=== PATIENT | male | born 1960 | race Caucasian/White ===

== ENCOUNTER → 2016-12-29 12:03 | Outpatient (CLI) | payer OTHER ==
[2015-03-11 14:41] VITALS: BMI 30.4
[~2016-12-29 12:03] MED LIST: APAP325 MG PO; ATACAND16 MG PO; ATACAND32 MG PO; BUPRENORPHIN-N1 EACH SL; CATAPRES0.1 MG PO; CIPRO500 MG PO; COZAAR100 MG PO; DOXYCYCLINE HY100 M2 PO; GLUCOPHAGE1000 MG PO; GLUCOTROL 5 MG T5 MG PO; HYDROCODONE-APA1 TAB; HYDROCODONE-APA1 TAB PO; LYRICA75 MG PO; MS CONTIN30 MG PO; NEURONTIN 300300 MG PO; PERCOCET 10/3251 TA1 PO; ROCEPHIN 2 GM/D52 G1 IV; UNASYN IV; VANCOMYCIN 1 GM/1 G1 IV
[2016-12-29 16:45] LABS: CREATININE - SERUM 1.3 mg/dL (0.6-1.3); VANCOMYCIN - TROUGH 14.5 ug/mL (10.0-20.0)
== END | disposition home or self-care (01) ==
LOC: D.LABREF 12:03
DX: M86.9 Osteomyelitis, unspecified (principal); Z79.2 Long term (current) use of antibiotics; S81.802A Unspecified open wound, left lower leg, initial encounter

== ENCOUNTER → 2017-01-02 12:30 | Outpatient (CLI) | payer OTHER ==
[2015-03-11 14:41] VITALS: BMI 30.4
[2017-01-02 13:26] LABS: CREATININE - SERUM 0.8 mg/dL (0.6-1.3); VANCOMYCIN - TROUGH 9.1 ug/mL (10.0-20.0)
== END | disposition home or self-care (01) ==
LOC: D.LABREF 12:30
DX: Z51.81 Encounter for therapeutic drug level monitoring (principal); Z79.2 Long term (current) use of antibiotics

== ENCOUNTER → 2017-01-09 12:58 | Outpatient (CLI) | payer OTHER ==
[2015-03-11 14:41] VITALS: BMI 30.4
[2017-01-09 13:54] LABS: CREATININE - SERUM 0.8 mg/dL (0.6-1.3)
== END | disposition home or self-care (01) ==
LOC: D.LABREF 12:58
DX: Z51.81 Encounter for therapeutic drug level monitoring (principal); Z79.2 Long term (current) use of antibiotics

== ENCOUNTER → 2017-01-12 16:15 | Outpatient (CLI) | payer OTHER ==
[2015-03-11 14:41] VITALS: BMI 30.4
== END | disposition home or self-care (01) ==
LOC: D.LABREF 16:15
PROVIDERS: Internal Medicine Infectious Disease
DX: M86.60 Other chronic osteomyelitis, unspecified site (principal); Z79.2 Long term (current) use of antibiotics

== ENCOUNTER → 2017-01-12 18:27 | Outpatient (CLI) | payer OTHER ==
[2015-03-11 14:41] VITALS: BMI 30.4
== END | disposition home or self-care (01) ==
LOC: D.LABREF 18:27
DX: S81.802A Unspecified open wound, left lower leg, initial encounter (principal); M86.60 Other chronic osteomyelitis, unspecified site; Z79.2 Long term (current) use of antibiotics

== ENCOUNTER 2018-07-05 10:20 | Inpatient (IN) | payer OTHER, MEDICARE ==
[~2018-07-05] VITALS: Ht 180.3 cm; Wt 99.8 kg
--- NOTE | ~2018-07-05 | EC ---
PATIENT:KARI CORONADO DATE OF SERVICE: 07/05/18 SEX: M MEDICAL RECORD: [id number] DATE OF : 58 LOCATION:D.MS [facility]222 AGE OF PATIENT: 57 ADMISSION DATE: 07/05/18 REFERRING PHYSICIAN: INTERPRETING PHYSICIAN: CE GRIJALVA MD ECHOCARDIOGRAM REPORT ECHO CHARGES 4 ECHO COMPLETE Date: 07/06/18 CLINICAL DIAGNOSIS: DVT ECHOCARDIOGRAPHIC MEASUREMENTS (adult normal given) AC root (d.<3.7cm) 4.5 cm LV Septum d (<1.2 cm> 1.6 cm Valve Excursion 1.8 cm LV Septum (systole) 2.0 cm Left Atria (s.<4.0cm> 3.4 cm LVPW d(<1.2cm) 1.8 cm RV (d.<2.3cm) 3.1 cm LVPW (sytole) 1.9 cm LV diastole(<5.6CM) 4.0 cm MV E-F(>70mm/sec) cm LV systole 3.2 cm LVOT Diameter 2.0 cm MV exc.(>10mm) cm Est.ejection fraction (50-75%) % DOPPLER: LVIT cm/sec A 103 cm/sec E 72.0 cm/sec LA cm/sec RVSP 15 mmHg LVOT 85 cm/sec AOP1/2T m/s Asc. Ao 121 cm/sec RVOT 58 cm/sec RA cm/sec PA 98 cm/sec AV Gradient Peak 5.90 mmHg AV Mean 2.97 mmHg AV Area 2.2 cm MV Gradient Peak 4.52 mmHg MV Mean 1.65 mmHg MV Area cm COMMENTS: Measurement Department Chief Clerk: 2 PINO ELLSWORTH Reel Worker: 1 Dr. Russell TAPE# PACS Pericardial Effusion N DATE OF SERVICE: Adequate 2D echo, color flow, spectral Doppler, and M-mode. LVH present. LV internal dimension is normal. Wall motion normal. EF is greater than or equal to 55%. Aortic valve is tricuspid. No evidence of stenosis by Doppler interrogation. Left atrium is normal at 3.4 cm. Mitral valve showed no prolapse. Trace MR. Right-sided chambers grossly normal. Trace TR. ECHOCARDIOGRAM REPORT [id number] KARI CORONADO TRANSINT:[id number] Voice Confirmation ID: [id number] DOCUMENT ID: [id number] CE GRIJALVA MD at 1546 CC: [id number] DICTATION DATE: 07/07/1842 FREELANCE TRANSLATOR: 07/07/18 1641 DIS IN 07/09/18 [facility] [address] [place] [address]
--- NOTE | ~2018-07-05 | MORECARE ---
CASE MANAGEMENT DISCHARGE SUMMARY PATIENT: KARI CORONADO UNIT: [id number] ADM DATE: 07/05/18 AGE: 57 : 58 SEX: M ROOM/BED: D.E10 AUTHOR: KIKI VAZQUEZ PHYSICIAN: REFERRING PHYSICIAN: MARI ALSTON MD DATE OF SERVICE: 07/05/18 Discharge Plan Patient Name: KARI CORONADO [facility] : 1960 Planned Disposition: Anticipated Discharge Date: Discharge Date: Expected LOS: Initial Reviewer: [email or web address] Initial Review Date: 07/05/2018 Generated: 07/05/18 2:04 pm DCPIA - Discharge Planning Initial Assessment Updated by [email or web address]: Elysia Minaya on 07/05/18 1:03 pm * Is the patient Alert and Oriented? Yes * PCP NONE * Pharmacy [facility] * Preadmission Environment Home with Family * ADLs Partial Dependent * Partial ADLs (Assistance needed) Ambulation * Equipment Crutch * List name and contact numbers for known caregivers / representatives who currently or will assist patient after discharge: SCOTT, DAUGHTER, * Community resources currently utilized None * Can the patient safely return to the preadmission environment? Yes * Has this patient been hospitalized within the prior 30 days at any hospital? No Patient Name: KARI CORONADO Page 69608 at 1304 All edits/amendments must be made on the electronic document DICTATION DATE: 07/05/18 1304 CAR JOCKEY: CECIL 07/05/18 1304 RPT#: [id number] DC DATE: STATUS: ADM IN [facility] [address] [place] [address] END OF REPORT
--- NOTE | ~2018-07-05 | HEMODYNAMI ---
PATIENT:KARI CORONADO MEDICAL RECORD: [id number] : 58 LOCATION:[facility] D.2227 ADMISSION DATE: 07/05/18 Generatedon:07/06/201811:02 Patient name: KARI CORONADO Patient #: [id number] SSN: : 1960 Date of study: 07/06/2018 Page: Of Hemodynamic Procedure Report Patient Data Patient Demographics Procedure consent was obtained First Name: KARI Gender: Male Last Name: IVONNE : 1960 Patient #: [id number] Age: 57 year(s) Race: Unknown Additional ID: [id number] Contact details [address]: [address] [place] [address] State: [place] City: [place] Zip code: [address] Past Medical History Allergies: No known allergies Admission Admission Data Admission Date: 07/05/2018 Admission Time: 12:59 Room #: D.2227 Height (in.): 71 BSA: 2.2 (m2) Height (cm.): 180.34 BMI: 30.68 (kg/m2) Weight (lbs.): 220 Weight (kg.): 99.79 Procedure Procedure Types Cath Procedure Peripheral Cath Diagnostic Procedure Venography Procedure Description Procedure Date Procedure Date: 07/06/2018 Procedure Start Time: 9:55 Procedure Staff Name Function Michoacano Vega MD Performing Physician Nadeen Landaverde RT Monitor Mitch Oliver RT Scrub Dipika Hull RN Nurse Procedure Data Cath Procedure Fluoroscopy Diagnostic fluoroscopy Total fluoroscopy Time: 6.9 time: 6.9 min min Diagnostic fluoroscopy Total fluoroscopy dose: dose: 1559 mGy 1559 mGy Contrast Material Contrast Material Type Amount (ml) Isovue 300 110 Procedure Medications Medication Administration Route Dosage Heparin Flush Bag added to field 3 bags (1000units/500ml NS) Lidocaine 1% added to field 20 Versed I.V. 2 mg Fentanyl I.V. 100 mcg Versed I.V. 1 mg Fentanyl I.V. 50 mcg Versed I.V. 1 mg Fentanyl I.V. 50 mcg Heparin Bolus I.V. 5000 units Benadryl I.V. 50 mg Versed I.V. 1 mg Fentanyl I.V. 50 mcg Hemodynamics Rest BSA: 2.2 (m2) O2 Consumption: Estimated: 277.14 (ml/min) O2 Consumption indexed: Estimated:125.97 (ml/min/m) Heart Rate: 91 (bpm) Snapshots Pre Cath Intra NCS Post Cath Vital Signs Time Heart Resp SPO2 etCO2 NIBP (mmHg) Rhythm Pain Sedation Rate (ipm) (%) (mmHg) Status Level (bpm) 9:43:36 89 12 99 30.6 182/125(148) NSR 0 (11) 10(A) , No pain 9:47:54 91 20 95 20.2 156/105(116) NSR 0 (11) 10(A) , No pain 9:52:14 92 13 98 20.9 153/103(137) NSR 0 (11) 10(A) , No pain 9:56:42 93 13 26.9 160/91(111) NSR 0 (11) 8(A) , No pain 10:01:00 90 15 97 40.4 147/87(124) NSR 0 (11) 8(A) , No pain 10:05:25 91 22 97 47.8 133/85(124) NSR 0 (11) 8(A) , No pain 10:09:38 87 19 95 29.2 119/87(99) NSR 0 (11) 8(A) , No pain 10:14:38 86 15 95 38.1 Measuring NSR 0 (11) 8(A) , No pain 10:14:48 87 17 94 40.4 144/96(127) NSR 0 (11) 8(A) , No pain 10:19:08 83 17 90 33.7 159/108(128) NSR 0 (11) 8(A) , No pain 10:23:34 85 17 95 38.9 144/100(123) NSR 0 (11) 8(A) , No pain 10:27:56 87 19 32.1 142/100(113) NSR 0 (11) 8(A) , No pain 10:32:43 86 19 94 0.7 154/95(125) NSR 0 (11) 8(A) , No pain 10:37:01 85 18 98 17.9 147/103(118) NSR 0 (11) 8(A) , No pain 10:41:28 84 10 0 144/105(117) NSR 0 (11) 8(A) , No pain 10:45:48 86 19 98 3.7 148/100(117) NSR 0 (11) 8(A) , No pain 10:50:47 86 23 85 1.4 Measuring NSR 0 (11) 8(A) , No pain 10:50:49 86 20 84 0.7 140/101(133) NSR 0 (11) 8(A) , No pain 10:55:48 86 14 96 13.4 Measuring NSR 0 (11) 8(A) , No pain 10:56:10 87 18 89 19.4 145/108(132) NSR 0 (11) 8(A) , No pain 11:00:28 87 16 0.7 154/118(142) NSR 0 (11) 8(A) , No pain Medications Time Medication Route Dose Verified Delivered Reason Notes Effec tiveness by by 9:42:08 Heparin Flush added 3 Michoacano Ríos used for Bag to bags Silvia Vega procedure (1000units/500ml field MD GARCIA NS) 9:48:22 Lidocaine 1% added 20ml Michoacano Ríos used for to vial Silvia Vega procedure field MD GARCIA 9:56:14 Versed I.V. 2 mg Michoacano Bar for Silvia Hull RN sedation 9:56:24 Fentanyl I.V. 100 Michoacano Bar for mcg Silvia Hull RN sedation 10:00:08 Versed I.V. 1 mg Michoacano Crumody for Silvia Hull RN sedation 10:00:21 Fentanyl I.V. 50 Michoacano Bar for mcg Silvia Hull RN sedation 10:05:24 Versed I.V. 1 mg Michoacano Bar for Silvia Hull RN sedation 10:05:31 Fentanyl I.V. 50 Michoacano Crumody for mcg Silvia Mylesr RN sedation 10:30:04 Heparin Bolus I.V. 5000 Michoacano Crumody units Silvia Hull RN, MD 10:31:30 Benadryl I.V. 50 mg Michoacano Hull RN, MD 10:42:22 Versed I.V. 1 mg Michoacano Bar for Silvia Hull RN sedation 10:42:28 Fentanyl I.V. 50 Michoacano Bar for [facility] Silvia Hull RN sedation Procedure Log Time Note 9:17:12 Use device set IR Diagnostic 9:17:15 Tegaderm 4 x 4 (1626W) opened to sterile field. 9:17:15 Sterile Angiographic Pack opened to sterile field. 9:17:18 Bag Decanter (2002S) opened to sterile field. 9:17:39 Patient Weight : 220 lbs 9:17:44 Patient Height : 71 inches 9:21:58 Time tracking: Regular hours (M-F 7:00 - 5:00) 9:22:07 Plan of Care:Hemodynamics will remain stable., Cardiac rhythm will remain stable., Comfort level will be maintained., Respiratory function will remain adequate., Patient/ family verbilizes understanding of procedure., Procedure tolerated without complication., Recovers from procedure without complications.. 9:23:24 Patient received from Med/Surg to IR Alert and oriented. Tansferred to table in Prone position. 9:23:29 Correct patient and procedure confirmed by team. 9:23:31 Signed procedure consent form obtained from patient. 9:23:42 H&P Date Dictated: 07/06/2018 Within 30 days and on chart.. 9:24:33 Pre-procedure instructions explained to patient. 9:24:34 Pre-op teaching completed and patient verbalized understanding. 9:24:38 Family unavailable. 9:24:42 Patient NPO since Midnight. 9:24:55 Patient allergic to No known allergies 9:25:39 Is the patient allergic to Iodine/contrast media? No. 9:25:44 Is patient on blood thinner?Yes 9:25:56 ACC The patient was administered the following blood thiners within the last 24 hours: ACCLovenox 9:26:01 Patient diabetic? Yes. 9:26:20 If diabetic: On Metformin? Yes 9:26:31 If on Metformin: Last Dose? 07/05/2018 9:26:36 - 9::46 ----Pre-sedation anethsthesia assessment.---- 9::55 Previous problem with sedation/anesthesia? No ? 9:27:10 Snore? No 9:27:13 Sleep apnea? No 9:27:15 Deviated septum? No 9:27:18 Opens mouth fully? Yes 9:27:22 Sticks out tongue? Yes 9:27:25 Airway obstruction? No ? 9:27:37 Dentures? No ? 9:27:50 IV patent on arrival in right forearm with D5/.45%NaCl at O. 9:27:58 Popliteal region area was prepped with chlora-prep and draped in steril e fashion 9:28:02 - 9:29:07 BENTSON 145cm wire ([id number]) opened to sterile field. 9:29:08 Micropuncture VSI 4FR kit opened to sterile field. 9:29:[address] Ori ([id number]) opened to sterile field. 9:29:09 GLIDE CATHETER 5FR ANGLED 65cm (CG507) opened to sterile field. 9:40:53 ROADRUNNER FIRM 260CM glide wire ([id number]) opened to sterile field. 9:42:08 Heparin Flush Bag (1000units/500ml NS) 3 bags added to field was administered by Michoacano Vega MD; used for procedure; 9:42:12 Baseline sample Acquired. 9:42:12 Vital chart was started 9:48:22 Lidocaine 1% 20ml vial added to field was administered by Michoacano pina MD; used for procedure; 9:49:59 Physician arrived 9:50:00 --------ALL STOP TIME OUT------ 9:50:01 Final Timeout: patient, procedure, and site verified with staff and physician. All members of the team are in agreement. 9:51:07 PACK 260 wire ([id number]) opened to sterile field. 9:55:03 Procedure started. 9:55:04 Full Disclosure recording started 9:55:10 Local anesthetic to right popliteal vein with Lidocaine 1% by Michoacano Vega MD.INITIAL ACCESS ONLY 9:55:13 Venous access obtained using ultrasound guidance. 9:56:14 Versed 2 mg I.V. was administered by Dipika Hull RN; for sedation; 9:56:24 Fentanyl 100 mcg I.V. was administered by Dipika Hull RN; for sedation; 10:00:08 Versed 1 mg I.V. was administered by Dipika Hull RN; for sedation; 10:00:21 Fentanyl 50 mcg I.V. was administered by Dipika Hull RN; for sedation ; 10:01:10 Baseline sample Acquired. 10:01:16 - 10:03:03 Zelante 8Fr Angiojet catheter opened to sterile field. 10:05:24 Versed 1 mg I.V. was administered by Dipika Hull RN; for sedation; 10:05:31 Fentanyl 50 mcg I.V. was administered by Dipika Hull RN; for sedation ; 10:23:23 INFLATOR BasixTOUCH ([id number]) opened to sterile field. 10:24:09 Inflate balloon Inflation number: 1 A Evercross 10 x 40 x 135 Balloon ([id number]) was prepped and advanced across the Undefined1, then inflated . 10:30:04 Heparin Bolus 5000 units I.V. was administered by Dipika Hull RN; ; 10:31:30 Benadryl 50 mg I.V. was administered by Dipika Hull RN; ; 10:32:57 Inflate balloon Inflation number: 2 A Evercross 12 x 40 x 135 ([id number]) was prepped and advanced across the Undefined1, then inflated. 10:42:22 Versed 1 mg I.V. was administered by Dipika Hull RN; for sedation; 10:42:28 Fentanyl 50 mcg I.V. was administered by Dipika Hull RN; for sedation ; 10:46:54 WALL STENT 12X60 stent ([id number]) was deployed across Undefined1 . 10:51:48 Procedure ended.(Physican Out) 10:52:16 Fluoroscopy time 06.90 minutes. 10:52:21 Fluoroscopy dose: 1559 mGy 10:52:21 Flurop Dose total: 1559 10:52:34 Contrast amount:Isovue 300 110ml. 10:52:37 Procedure and supply charges have been captured, reviewed, submitted an d are correct. 10:56:47 Report given to Med/Surg. 11:02:37 Vital chart was stopped Intervention Summary Intervention Notes Time ActionType Lesion and Equipment Used Action# Pressure Duration Attributes 10:24:09 Inflate Undefined1 Evercross 10 x 1 0 00:00 balloon 40 x 135 Balloon ([id number]) 10:32:57 Inflate Undefined1 Evercross 12 x 2 0 00:00 balloon 40 x 135 ([id number]) 10:46:54 Deploy self Undefined1 WALL STENT 1 expanding 12X60 stent stent ([id number]) Device Usage Item Name Manufacture Quantity Catalog Number Hospital Part Current M inimal Lot# / Charge Number Stock Stock Serial# Code Tegaderm 4 x 4 3M 1 1626W [id number] [id number] [id number] 5 (1626W) Sterile Cardinal 1 [id number] 970021 092069 5 Angiographic Health Pack Bag Decanter Microtek 1 2001S 479404 78146 553937 5 () Medical Inc. BENTSON 145cm Cook Medical 1 [id number] 945049 432921 5 wire ([id number]) Micropuncture VSI VASCULAR 1 7266V 864695 837421 5 VSI 4FR kit SOLUTIONS SHEATH [address]FR [facility] St Ori 1 070536 616312 345411 721257 5 Ori (610656) GLIDE CATHETER Terumo 1 CG507 624683 827399 5 5FR ANGLED 65cm (CG507) ROADRUNNER FIRM Cook Medical 1 D11547 224334 212961 5 [id number] 260CM glide wire (M09273) PACK 260 wire Cook [facility] 1 Z79631 445443 82118 210205 5 [id number] ([id number]) Zelante 8Fr [place] 1 813611-823 413793 071521 525658 5 AngioMetis Secure Solutionst Scientific catheter INFLATOR Merit 1 IY1032 004038 010424 505579 5 BasixAtiva Medical Medical (IL6868) Evercross 10 x Medtronic 1 [id number] 476947 718110 047263 5 [id number] 40 x 135 Balloon ([id number]) Evercross 12 x Medtronic 1 [id number] 721228 276666 102365 5 [id number] 40 x 135 ([id number]) WALL STENT [place] 1 [id number] 974125 903456 054304 5 [id number] 12X60 stent Scientific ([id number]) Signature Audit [place] Stage Time Signature Unsigned Intra-Procedure 07/06/2018 Nadeen Landaverde 11:02:34 AM RT(R) Signatures Monitor : Nadeen Landaverde RT Signature : Date : Time : [place] [id number] [place] [address]
--- NOTE | ~2018-07-05 | MORECARE ---
CASE MANAGEMENT DISCHARGE SUMMARY PATIENT: KARI CORONADO UNIT: [id number] ADM DATE: 07/05/18 AGE: 57 : 58 SEX: M ROOM/BED: D.E10 AUTHOR: KIKI VAZQUEZ PHYSICIAN: REFERRING PHYSICIAN: MARI ALSTON MD DATE OF SERVICE: 07/05/18 Discharge Plan Patient Name: KARI CORONADO Facility: [facility]:[place] : 1960 Planned Disposition: Anticipated Discharge Date: Discharge Date: Expected LOS: Initial Reviewer: [email or web address] Initial Review Date: 07/05/2018 Generated: 07/05/18 2:12 pm DCP- Discharge Planning Updated by [email or web address]: Elysia Minaya on 07/05/18 12:[address] Patient Name: KARI CORONADO Admission Status: ER Accout number: [id number] Admission Date: 07-05-2018 : 1960 Admission Diagnosis: Attending: MARI ALSTON Current LOS: 1 Anticipated DC Date: Planned Disposition: Primary Insurance: WORKERS COMPENSATION Discharge Planning Comments: CM MET WITH PATIENT AND DAUGHTER ABOUT DC PLANNING/NEEDS. STATES PLANS TO DC TO HOME WHEN DISCHARGED. [facility] USES CRUTCHES WHEN NEEDED. NO NEEDS KNOWN AT THIS TIME. CM WILL FOLLOW AND ASSIST NEEDED WITH DC PLANNING/NEEDS. Farmworker [employer]: Elysia Minaya DCPIA - Discharge Planning Initial Assessment Updated by [email or web address]: Elysia Minaya on 07/05/18 1:03 pm * Is the patient Alert and Oriented? Yes * PCP NONE * Pharmacy [facility] * Preadmission Environment Home with Family * ADLs Partial Dependent * Partial ADLs (Assistance needed) Ambulation * Equipment Crutch * List name and contact numbers for known caregivers / representatives who currently or will assist patient after discharge: SCOTT, DAUGHTER, * Community resources currently utilized None * Can the patient safely return to the preadmission environment? Yes * Has this patient been hospitalized within the prior 30 days at any hospital? No Last DP export: 07/05/18 12:04 Patient Name: KARI CORONADO Page 70657 at 1312 All edits/amendments must be made on the electronic document DICTATION DATE: 07/05/181311 PONY EDGER: CECIL 07/05/181311 RPT#: [id number] [place] DATE: STATUS: ADM IN [facility] [address] [place] [address] END OF REPORT
--- NOTE | ~2018-07-05 | MORECARE ---
CASE MANAGEMENT DISCHARGE SUMMARY PATIENT: KARI CORONADO UNIT: [id number] ADM DATE: 07/05/18 AGE: 57 : 58 SEX: M ROOM/BED: D.2227 AUTHOR: TAYLOR,DOC PHYSICIAN: REFERRING PHYSICIAN: MARI ALSTON MD DATE OF SERVICE: 07/06/18 Discharge Plan Patient Name: KARI CORONADO Facility: [facility]:[place] : 1960 Planned Disposition: Anticipated Discharge Date: Discharge Date: Expected LOS: Initial Reviewer: [email or web address] Initial Review Date: 07/05/2018 Generated: 07/06/18 4:48 pm Comments DCP- Discharge Planning Updated by [email or web address]: Lawanda Zhu on 07/06/18 2:[address] Met with patient to discuss his insurance. He states this is related to his injury when he was 17 and it is Workman's comp related. He states he lives with his (Bella). States he is independent with all ADL's and IADL's. States his will take him home on discharge. Denies need for home health. CM will continue to follow and assist with discharge planning/needs. DCP- Discharge Planning Updated by [email or web address]: Elysia Minaya on 07/05/18 12:[address] Patient Name: KARI CORONADO Admission Status: ER Accout number: [id number] Admission Date: 07-05-2018 : 1960 Admission Diagnosis: Attending: MARI ALSTON Current LOS: 1 Anticipated DC Date: Planned Disposition: Primary Insurance: WORKERS COMPENSATION Discharge Planning Comments: CM MET WITH PATIENT AND DAUGHTER ABOUT DC PLANNING/NEEDS. STATES PLANS TO DC TO HOME WHEN DISCHARGED. STATES USES CRUTCHES WHEN NEEDED. NO NEEDS KNOWN AT THIS TIME. CM WILL FOLLOW AND ASSIST NEEDED WITH DC PLANNING/NEEDS. Outboard Motorboat Rigger: Elysia Minaya DCPIA - Discharge Planning Initial Assessment Updated by [email or web address]: Elysia Minaya on 07/05/18 1:03 pm * Is the patient Alert and Oriented? Yes * PCP NONE * Pharmacy [facility] * Preadmission Environment Home with Family * ADLs Partial Dependent * Partial ADLs (Assistance needed) Ambulation * Equipment Crutch * List name and contact numbers for known caregivers / representatives who currently or will assist patient after discharge: SCOTT, JOEY, * Community resources currently utilized None * Can the patient safely return to the preadmission environment? Yes * Has this patient been hospitalized within the prior 30 days at any hospital? No Last DP export: 07/05/18 12:12 Patient Name: KARI CORONADO Page 35133 at 1548 All edits/amendments must be made on the electronic document DICTATION DATE: 07/06/181546 SOAP TENDER: CECIL 07/06/181546 RPT#: [id number] DC DATE: STATUS: ADM IN [facility] [address] [place] [address] END OF REPORT
--- NOTE | ~2018-07-05 | MORECARE ---
CASE MANAGEMENT DISCHARGE SUMMARY PATIENT: KARI CORONADO UNIT: [id number] ADM DATE: 07/05/18 AGE: 57 : 58 SEX: M ROOM/BED: D.2227 AUTHOR: KIKI VAZQUEZ PHYSICIAN: REFERRING PHYSICIAN: MARI ALSTON MD DATE OF SERVICE: 07/09/18 Discharge Plan Patient Name: KARI CORONADO Facility: [facility]:[place] : 1960 Planned Disposition: Anticipated Discharge Date: Discharge Date: Expected LOS: Initial Reviewer: [email or web address] Initial Review Date: 07/05/2018 Generated: 07/09/18 5:52 pm Comments DCP- Discharge Planning Updated by [email or web address]: Lawanda Zhu on 07/09/18 3:[address] Patient Name: AKRI CORONADO Encounter No: [id number] : 1960 Primary Insurance: WORKERS COMPENSATION Anticipated DC Date: Planned Disposition: External Planned Provider: : DCP follow-up note: Patient in agreement with discharge plan. He denies need for home health. He states his will pick him up. Denies need for DME. No changes to plan. Case management will follow and assist as needed. Lawanda Zhu DCP- Discharge Planning Updated by [email or web address]: Lawanda Zhu on 07/06/18 2:[address] Met with patient to discuss his insurance. He states this is related to his injury when he was 17 and it is Workman's comp related. He states he lives with his (Bella). States he is independent with all ADL's and IADL's. States his will take him home on discharge. Denies need for home health. CM will continue to follow and assist with discharge planning/needs. DCP- Discharge Planning Updated by [email or web address]: Elysia Minaya on 07/05/18 12:[address] Patient Name: KARI CORONADO Admission Status: ER Accout number: [id number] Admission Date: 07-05-2018 : 1960 Admission Diagnosis: Attending: MARI ALSTON Current LOS: 1 Anticipated DC Date: Planned Disposition: Primary Insurance: WORKERS COMPENSATION Discharge Planning Comments: CM MET WITH PATIENT AND DAUGHTER ABOUT DC PLANNING/NEEDS. STATES PLANS TO DC TO HOME WHEN DISCHARGED. STATES USES CRUTCHES WHEN NEEDED. NO NEEDS KNOWN AT THIS TIME. CM WILL FOLLOW AND ASSIST NEEDED WITH DC PLANNING/NEEDS. Broadband Installer: Elysia Minaya DCPIA - Discharge Planning Initial Assessment Updated by [email or web address]: Elysia Minaya on 07/05/18 1:03 pm * Is the patient Alert and Oriented? Yes * PCP NONE * Pharmacy [facility] * Preadmission Environment Home with Family * ADLs Partial Dependent * Partial ADLs (Assistance needed) Ambulation * Equipment Crutch * List name and contact numbers for known caregivers / representatives who currently or will assist patient after discharge: SCOTT, DAUGHTER, * Community resources currently utilized None * Can the patient safely return to the preadmission environment? Yes * Has this patient been hospitalized within the prior 30 days at any hospital? No Last DP export: 07/06/18 2:48 Patient Name: KARI CORONADO Page 16592 at 1653 All edits/amendments must be made on the electronic document DICTATION DATE: 07/09/181651 SEMICONDUCTOR DEVELOPMENT TECHNICIAN: CECIL 07/09/181651 RPT#: [id number] DC DATE: STATUS: ADM IN [facility] [address] [place] [address] END OF REPORT
--- NOTE | ~2018-07-05 | MORECARE ---
CASE MANAGEMENT DISCHARGE SUMMARY PATIENT: KARI CORONADO UNIT: [id number] ADM DATE: 07/05/18 AGE: 57 : 58 SEX: M ROOM/BED: D.2227 AUTHOR: KIKI VAZQUEZ PHYSICIAN: REFERRING PHYSICIAN: MARI ALSTON MD DATE OF SERVICE: 07/10/18 Discharge Plan Patient Name: KARI CORONADO Facility: [facility]:[place] : 1960 Planned Disposition: Home Anticipated Discharge Date: Discharge Date: 07/09/2018 Expected LOS: 0 Initial Reviewer: [email or web address] Initial Review Date: 07/05/2018 Generated: 07/10/18 10:01 am Comments DCP- Discharge Planning Updated by [email or web address]: Lawanda Zhu on 07/09/18 3:[address] Patient Name: KARI CORONADO Encounter No: [id number] : 1960 Primary Insurance: WORKERS COMPENSATION Anticipated DC Date: Planned Disposition: External Planned Provider: : DCP follow-up note: Patient in agreement with discharge plan. He denies need for home health. He states his will pick him up. Denies need for DME. No changes to plan. Case management will follow and assist as needed. Lawanda Zhu DCP- Discharge Planning Updated by [email or web address]: Lawanda Zuh on 07/06/18 2:[address] Met with patient to discuss his insurance. He states this is related to his injury when he was 17 and it is Workman's comp related. He states he lives with his (Bella). States he is independent with all ADL's and IADL's. States his will take him home on discharge. Denies need for home health. CM will continue to follow and assist with discharge planning/needs. DCP- Discharge Planning Updated by [email or web address]: Elysia Minaya on 07/05/18 12:[address] Patient Name: KARI CORONADO Admission Status: ER Accout number: [id number] Admission Date: 07-05-2018 : 1960 Admission Diagnosis: Attending: MARI ALSTON Current LOS: 1 Anticipated DC Date: Planned Disposition: Primary Insurance: WORKERS COMPENSATION Discharge Planning Comments: CM MET WITH PATIENT AND DAUGHTER ABOUT DC PLANNING/NEEDS. STATES PLANS TO DC TO HOME WHEN DISCHARGED. STATES USES CRUTCHES WHEN NEEDED. NO NEEDS KNOWN AT THIS TIME. CM WILL FOLLOW AND ASSIST NEEDED WITH DC PLANNING/NEEDS. Roller Pneumatic: Elysia Marimar DCPIA - Discharge Planning Initial Assessment Updated by [email or web address]: Elysiapaul Minaya on 07/05/18 1:03 pm * Is the patient Alert and Oriented? Yes * PCP NONE * Pharmacy [facility] * Preadmission Environment Home with Family * ADLs Partial Dependent * Partial ADLs (Assistance needed) Ambulation * Equipment Crutch * List name and contact numbers for known caregivers / representatives who currently or will assist patient after discharge: SCOTT, DAUGHTER, * Community resources currently utilized None * Can the patient safely return to the preadmission environment? Yes * Has this patient been hospitalized within the prior 30 days at any hospital? No Last DP export: 07/09/18 3:52 Patient Name: KARI CORONADO Page 33624 at 0901 All edits/amendments must be made on the electronic document DICTATION DATE: 07/10/18900 WATER SUPPLY TECHNICIAN: CECIL 07/10/18900 RPT#: [id number] DC DATE:07/09/18 STATUS: DIS IN [facility] [address] [place] [address] END OF REPORT
[2018-07-05 11:00] LABS: BASOPHILS 0.4 % (0-2); HEMATOCRIT 46.9 % (42.0-54.0); HEMOGLOBIN 16.8 g/dL (13.5-17.5); IMMATURE GRANULOCYTES 0.5 % (0-5); LYMPHOCYTES 16.8 % (15-50); MCH 32.1 pg (26.0-34.0); MCHC 35.8 g/dL (31.0-37.0); MCV 89.5 fL (80.0-100.0); MEAN PLATELET VOLUME 10.9 fL (7.4-10.4); MONOCYTES 7.9 % (2-11); NEUTROPHILS 73.4 % (40-80); RBC 5.24 10x6/uL (4.20-6.10); RDW 12.2 % (11.5-14.5); WBC 9.7 10x3/uL (4.8-10.8)
[2018-07-05 11:03] LABS: PLATELET COUNT 120 10x3/uL (130-400)
[2018-07-05 11:41] LABS: ALBUMIN 3.9 g/dL (3.4-5.0); BILIRUBIN - TOTAL 1.02 mg/dL (0.2-1.3); CALCIUM 9.5 mg/dL (8.5-10.1); CARBON DIOXIDE 22.5 mmol/L (21.0-32.0); CREATININE - SERUM 1.4 mg/dL (0.6-1.3); POTASSIUM - SERUM 4.5 mmol/L (3.5-5.1); PROTEIN - SERUM 8.8 g/dL (6.4-8.2)
[2018-07-05] MEDS ORDERED: XARELTO15 MG PO (11:46)
[2018-07-05] MEDS ORDERED: XARELTO20 MG PO (11:46)
[2018-07-05 15:55] VITALS: BP 171/125; BMI 30.7
[2018-07-05 16:48] VITALS: BP 157/94
[2018-07-05 21:19] VITALS: BP 127/104
[2018-07-06 05:07] VITALS: BP 147/105
[2018-07-06 05:17] LABS: BASOPHILS 0.6 % (0-2); EOSINOPHILS 2.2 % (0-7); HEMATOCRIT 38.6 % (42.0-54.0); HEMOGLOBIN 13.6 g/dL (13.5-17.5); IMMATURE GRANULOCYTES 0.3 % (0-5); LYMPHOCYTES 31.5 % (15-50); MCH 31.5 pg (26.0-34.0); MCHC 35.2 g/dL (31.0-37.0); MCV 89.4 fL (80.0-100.0); MEAN PLATELET VOLUME 10.2 fL (7.4-10.4); MONOCYTES 9.1 % (2-11); NEUTROPHILS 56.3 % (40-80); PLATELET COUNT 100 10x3/uL (130-400); RBC 4.32 10x6/uL (4.20-6.10); RDW 12.2 % (11.5-14.5)
[2018-07-06 05:21] LABS: WBC 6.9 10x3/uL (4.8-10.8)
[2018-07-06 05:50] LABS: ALKALINE PHOSPHATASE 88 U/L (46-116); BILIRUBIN - TOTAL 0.61 mg/dL (0.2-1.3); CARBON DIOXIDE 25.4 mmol/L (21.0-32.0); CHLORIDE - SERUM 96 mmol/L (98-107); POTASSIUM - SERUM 3.9 mmol/L (3.5-5.1); PROTEIN - SERUM 6.9 g/dL (6.4-8.2); SODIUM 132 mmol/L (136-145); UREA NITROGEN 20 mg/dL (7-18)
[2018-07-06 05:55] LABS: ALBUMIN 2.9 g/dL (3.4-5.0); ALT (SGPT) 42 U/L (10-68); CALC OSMOLALITY 279 mosm/kg (275-300); GLUCOSE 322 mg/dL (74-106); eGFR NON AFRICAN AMERICAN 81 mL/min (90-120)
[2018-07-06 07:36] LABS: APTT 36.3 SECONDS (22.8-39.4); INR 1.18 (0.85-1.17); PROTIME 14.5 SECONDS (11.6-15.0)
[2018-07-06 09:00] VITALS: BP 144/104
[2018-07-06 12:36] VITALS: Ht 180.3 cm; Wt 99.8 kg
[2018-07-06 16:39] VITALS: BP 173/115
[2018-07-06 18:29] VITALS: BP 143/101
[2018-07-06 21:15] VITALS: BP 158/99
[2018-07-07 01:19] VITALS: BP 121/82
[2018-07-07 06:27] LABS: BASOPHILS 0.4 % (0-2); EOSINOPHILS 1.9 % (0-7); HEMATOCRIT 36.6 % (42.0-54.0); HEMOGLOBIN 12.6 g/dL (13.5-17.5); IMMATURE GRANULOCYTES 0.4 % (0-5); LYMPHOCYTES 26.8 % (15-50); MCHC 34.4 g/dL (31.0-37.0); MCV 90.1 fL (80.0-100.0); MONOCYTES 9.8 % (2-11); NEUTROPHILS 60.7 % (40-80); PLATELET COUNT 101 10x3/uL (130-400); RBC 4.06 10x6/uL (4.20-6.10); RDW 12.2 % (11.5-14.5); WBC 5.2 10x3/uL (4.8-10.8)
[2018-07-07 07:01] LABS: ALBUMIN 2.7 g/dL (3.4-5.0); ALKALINE PHOSPHATASE 77 U/L (46-116); ALT (SGPT) 40 U/L (10-68); BILIRUBIN - TOTAL 0.86 mg/dL (0.2-1.3); CALC OSMOLALITY 282 mosm/kg (275-300); CHLORIDE - SERUM 100 mmol/L (98-107); CREATININE - SERUM 0.9 mg/dL (0.6-1.3); GLUCOSE 321 mg/dL (74-106); POTASSIUM - SERUM 3.5 mmol/L (3.5-5.1); PROTEIN - SERUM 6.2 g/dL (6.4-8.2); SODIUM 134 mmol/L (136-145); UREA NITROGEN 20 mg/dL (7-18); eGFR NON AFRICAN AMERICAN > 90 mL/min (90-120)
[2018-07-07 08:32] VITALS: BP 141/95
[2018-07-07 10:14] LABS: CEA 4.3 ng/mL (0.0-4.7)
[2018-07-07 14:15] VITALS: BP 172/97
[2018-07-07 16:20] VITALS: BP 157/98
[2018-07-07 20:51] VITALS: BP 157/91
[2018-07-08] VITALS (7 sets, daily range): BP systolic 145–169; BP diastolic 82–115
[2018-07-08 05:38] LABS: BASOPHILS 0.5 % (0-2); EOSINOPHILS 2.5 % (0-7); HEMATOCRIT 35.1 % (42.0-54.0); HEMOGLOBIN 12.2 g/dL (13.5-17.5); IMMATURE GRANULOCYTES 0.2 % (0-5); LYMPHOCYTES 24.8 % (15-50); MCH 31.3 pg (26.0-34.0); MCHC 34.8 g/dL (31.0-37.0); MEAN PLATELET VOLUME 10.5 fL (7.4-10.4); MONOCYTES 7.9 % (2-11); NEUTROPHILS 64.1 % (40-80); PLATELET COUNT 107 10x3/uL (130-400); RDW 12.3 % (11.5-14.5); WBC 4.1 10x3/uL (4.8-10.8)
[2018-07-08 05:53] LABS: ALBUMIN 2.8 g/dL (3.4-5.0); ALKALINE PHOSPHATASE 92 U/L (46-116); ALT (SGPT) 48 U/L (10-68); BILIRUBIN - TOTAL 0.57 mg/dL (0.2-1.3); CALCIUM 7.6 mg/dL (8.5-10.1); CARBON DIOXIDE 27.1 mmol/L (21.0-32.0); CHLORIDE - SERUM 99 mmol/L (98-107); CREATININE - SERUM 0.8 mg/dL (0.6-1.3); GLUCOSE 314 mg/dL (74-106); POTASSIUM - SERUM 3.7 mmol/L (3.5-5.1); PROTEIN - SERUM 6.1 g/dL (6.4-8.2); SODIUM 135 mmol/L (136-145); eGFR NON AFRICAN AMERICAN > 90 mL/min (90-120)
[2018-07-08 05:54] LABS: CALC OSMOLALITY 280 mosm/kg (275-300); UREA NITROGEN 11 mg/dL (7-18)
[2018-07-09] VITALS: BP 152/86
[2018-07-09 04:00] VITALS: BP 145/100
[2018-07-09 04:37] LABS: BASOPHILS 0.6 % (0-2); EOSINOPHILS 3.6 % (0-7); HEMATOCRIT 32.6 % (42.0-54.0); HEMOGLOBIN 11.2 g/dL (13.5-17.5); IMMATURE GRANULOCYTES 0.3 % (0-5); LYMPHOCYTES 32.2 % (15-50); MCH 30.9 pg (26.0-34.0); MCHC 34.4 g/dL (31.0-37.0); MCV 89.8 fL (80.0-100.0); MEAN PLATELET VOLUME 10.2 fL (7.4-10.4); MONOCYTES 10.9 % (2-11); NEUTROPHILS 52.4 % (40-80); PLATELET COUNT 112 10x3/uL (130-400); RBC 3.63 10x6/uL (4.20-6.10); RDW 12.3 % (11.5-14.5); WBC 3.4 10x3/uL (4.8-10.8)
[2018-07-09 04:58] LABS: ALBUMIN 2.5 g/dL (3.4-5.0); ALKALINE PHOSPHATASE 74 U/L (46-116); ALT (SGPT) 43 U/L (10-68); BILIRUBIN - TOTAL 0.41 mg/dL (0.2-1.3); CALC OSMOLALITY 277 mosm/kg (275-300); CALCIUM 7.8 mg/dL (8.5-10.1); CARBON DIOXIDE 29.3 mmol/L (21.0-32.0); CHLORIDE - SERUM 101 mmol/L (98-107); CREATININE - SERUM 0.8 mg/dL (0.6-1.3); POTASSIUM - SERUM 3.5 mmol/L (3.5-5.1); PROTEIN - SERUM 6.1 g/dL (6.4-8.2); SODIUM 137 mmol/L (136-145); UREA NITROGEN 11 mg/dL (7-18); eGFR NON AFRICAN AMERICAN > 90 mL/min (90-120)
[2018-07-09 05:11] LABS: GLUCOSE 192 mg/dL (74-106)
[2018-07-09 08:45] VITALS: BP 148/103
[2018-07-09 13:05] VITALS: BP 156/98
[2018-07-09] MEDS ORDERED: CARDURA2 MG PO (16:13)
[2018-07-09] MEDS ORDERED: ELIQUIS5 MG PO (16:13)
[2018-07-09] MEDS ORDERED: COZAAR50 MG PO (16:14)
[2018-07-09] MEDS ORDERED: MIRALAX17 GM PO (16:14)
[2018-07-09] MEDS ORDERED: NORCO 10-325 TA1 TAB PO (16:34)
[2018-07-09 16:35] VITALS: BP 166/72
== END 2018-07-09 18:26 | disposition home or self-care (01) | DRG 271 ==
LOC: D.ER 10:20 → D.EDHOLD 12:20 → OBSVTIME 12:21 → D.MS 12:59 → D.EDHOLD 12:59 → D.MS 13:09
PROVIDERS: Family Medicine; Internal Medicine Hematology & Oncology; Radiology Diagnostic Radiology
PROC: 067C3DZ Dilation of Right Common Iliac Vein with Intraluminal Device, Percutaneous Approach (ICD-10-PCS; 2018-07-06)
PROC: 3E03317 Introduction of Other Thrombolytic into Peripheral Vein, Percutaneous Approach (ICD-10-PCS; 2018-07-06)
PROC: 06CC3ZZ Extirpation of Matter from Right Common Iliac Vein, Percutaneous Approach (ICD-10-PCS; principal; 2018-07-06 09:00)
DX: I82.421 Acute embolism and thrombosis of right iliac vein (principal); E87.1 Hypo-osmolality and hyponatremia; I82.4Z1 Acute embolism and thrombosis of unspecified deep veins of right distal lower extremity; I10 Essential (primary) hypertension; E11.65 Type 2 diabetes mellitus with hyperglycemia

== ENCOUNTER 2018-07-11 10:03 | Inpatient (IN) | payer OTHER, MEDICARE ==
[~2018-07-11] VITALS: Ht 180.3 cm; Wt 99.8 kg
--- NOTE | ~2018-07-11 | MORECARE ---
CASE MANAGEMENT DISCHARGE SUMMARY PATIENT: KARI CORONADO UNIT: [id number] ADM DATE: 07/11/18 AGE: 57 : 58 SEX: M ROOM/BED: D.2217 AUTHOR: KIKI VAZQUEZ PHYSICIAN: REFERRING PHYSICIAN: MALACHI BROWN MD DATE OF SERVICE: 07/12/18 Discharge Plan Patient Name: KARI CORONADO Facility: [facility]:[place] : 1960 Planned Disposition: Home or Self Care Anticipated Discharge Date: Discharge Date: Expected LOS: Initial Reviewer: [email or web address] Initial Review Date: 07/11/2018 Generated: 07/12/18 2:46 pm DCPIA - Discharge Planning Initial Assessment Updated by [email or web address]: Marilee Moses on 07/12/18 1:46 pm * Is the patient Alert and Oriented? Yes * How many steps to enter\exit or inside your home? * PCP none * Pharmacy [facility] * Preadmission Environment Home with Family * ADLs Independent * Equipment Crutch Rolling Walker Walker Wheelchair * List name and contact numbers for known caregivers / representatives who currently or will assist patient after discharge: ANISHA [phone] * Verbal permission to speak to the caregivers and representatives has been obtained from the patient. N/A * Community resources currently utilized None * Additional services required to return to the preadmission environment? No * Can the patient safely return to the preadmission environment? Yes * Has this patient been hospitalized within the prior 30 days at any hospital? Yes Last DP export: 07/11/18 1:15 Patient Name: KARI CORONADO Page 87941 at 1346 All edits/amendments must be made on the electronic document DICTATION DATE: 07/12/18 1345 MAGNESIUM MILL OPERATOR: CECIL 07/12/18 1345 RPT#: [id number] DC DATE: STATUS: ADM IN [facility] [address] [place] [address] END OF REPORT
--- NOTE | ~2018-07-11 | MORECARE ---
CASE MANAGEMENT DISCHARGE SUMMARY PATIENT: KARI CORONADO UNIT: [id number] ADM DATE: 07/11/18 AGE: 57 : 58 SEX: M ROOM/BED: D.2217 AUTHOR: TAYLORDOC PHYSICIAN: REFERRING PHYSICIAN: MALACHI BROWN MD DATE OF SERVICE: 07/13/18 Discharge Plan Patient Name: KARI CORONADO Facility: [facility]:[place] : 1960 Planned Disposition: Home or Self Care Anticipated Discharge Date: Discharge Date: 07/13/2018 Expected LOS: 0 Initial Reviewer: [email or web address] Initial Review Date: 07/11/2018 Generated: 07/13/18 4:58 pm Comments DCP- Discharge Planning Updated by [email or web address]: Marilee Moses on 07/12/18 12:[address] Patient Name: KARI CORONADO Admission Status: ER Accout number: [id number] Admission Date: 07-11-2018 : 1960 Admission Diagnosis: Attending: MALACHI BROWN Current LOS: 1 Anticipated DC Date: Planned Disposition: Home or Self Care Primary Insurance: WORKERS COMPENSATION Discharge Planning Comments: CM met with patient to assess discharge planning needs. Patient lives independently at home with his and plans to return there when he is discharged. He has crutches, walker, wheelchair at home. He denies any HH and stated that he did not think he needed it. He stated that he was given a script but it was $800.00 and he could not afford it. Dr Rueda has given him sample of eliquis and a coupon for elequis. His will be the one to drive him home. CM will continue to follow and assist with DC planning needs. Epic Anesthesia Analyst: Marilee Moses DCPIA - Discharge Planning Initial Assessment Updated by [email or web address]: Marilee Moses on 07/12/18 1:46 pm * Is the patient Alert and Oriented? Yes * How many steps to enter\exit or inside your home? * PCP none * Pharmacy [facility] * Preadmission Environment Home with Family * ADLs Independent * Equipment Crutch Rolling Walker Walker Wheelchair * List name and contact numbers for known caregivers / representatives who currently or will assist patient after discharge: ANISHA [phone] * Verbal permission to speak to the caregivers and representatives has been obtained from the patient. N/A * Community resources currently utilized None * Additional services required to return to the preadmission environment? No * Can the patient safely return to the preadmission environment? Yes * Has this patient been hospitalized within the prior 30 days at any hospital? Yes Last DP export: 07/12/18 12:54 Patient Name: KARI CORONADO Page 54424 at 1558 All edits/amendments must be made on the electronic document DICTATION DATE: 07/13/181556 EATING DISORDER PSYCHOLOGIST: CECIL 07/13/181556 RPT#: [id number] DC DATE:07/13/18 STATUS: DIS IN [facility] [address] [place] [address] END OF REPORT
--- NOTE | ~2018-07-11 | MORECARE ---
CASE MANAGEMENT DISCHARGE SUMMARY PATIENT: KARI CORONADO UNIT: [id number] ADM DATE: 07/11/18 AGE: 57 : 58 SEX: M ROOM/BED: D.2217 AUTHOR: TAYLORDOC PHYSICIAN: REFERRING PHYSICIAN: MALACHI BROWN MD DATE OF SERVICE: 07/12/18 Discharge Plan Patient Name: KARI CORONADO Facility: [facility]:[place] : 1960 Planned Disposition: Home or Self Care Anticipated Discharge Date: Discharge Date: Expected LOS: Initial Reviewer: [email or web address] Initial Review Date: 07/11/2018 Generated: 07/12/18 2:54 pm Comments DCP- Discharge Planning Updated by [email or web address]: Marilee Moses on 07/12/18 12:[address] Patient Name: KARI CORONADO Admission Status: ER Accout number: [id number] Admission Date: 07-11-2018 : 1960 Admission Diagnosis: Attending: MALACHI BROWN Current LOS: 1 Anticipated DC Date: Planned Disposition: Home or Self Care Primary Insurance: WORKERS COMPENSATION Discharge Planning Comments: CM met with patient to assess discharge planning needs. Patient lives independently at home with his and plans to return there when he is discharged. He has crutches, walker, wheelchair at home. He denies any HH and stated that he did not think he needed it. He stated that he was given a script but it was $800.00 and he could not afford it. Dr Rueda has given him sample of eliquis and a coupon for elequis. His will be the one to drive him home. CM will continue to follow and assist with DC planning needs. Site Engineer: Marilee Moses DCPIA - Discharge Planning Initial Assessment Updated by [email or web address]: Marilee Moses on 07/12/18 1:46 pm * Is the patient Alert and Oriented? Yes * How many steps to enter\exit or inside your home? * PCP none * Pharmacy [facility] * Preadmission Environment Home with Family * ADLs Independent * Equipment Crutch Rolling Walker Walker Wheelchair * List name and contact numbers for known caregivers / representatives who currently or will assist patient after discharge: ANISHA [phone] * Verbal permission to speak to the caregivers and representatives has been obtained from the patient. N/A * Community resources currently utilized None * Additional services required to return to the preadmission environment? No * Can the patient safely return to the preadmission environment? Yes * Has this patient been hospitalized within the prior 30 days at any hospital? Yes Last DP export: 07/12/18 12:46 Patient Name: KARI CORONADO Page 33820 at 1354 All edits/amendments must be made on the electronic document DICTATION DATE: 07/12/18 1354 WIRELESS TEAM MEMBER: CECIL 07/12/18 1354 RPT#: [id number] DC DATE: STATUS: ADM IN [facility] [address] [place] [address] END OF REPORT
--- NOTE | ~2018-07-11 | MORECARE ---
CASE MANAGEMENT DISCHARGE SUMMARY PATIENT: KARI CORONADO UNIT: [id number] ADM DATE: 07/11/18 AGE: 57 : 58 SEX: M ROOM/BED: D.E16 AUTHOR: KIKI VAZQUEZ PHYSICIAN: REFERRING PHYSICIAN: MALACHI BROWN MD DATE OF SERVICE: 07/11/18 Discharge Plan Patient Name: KARI CORONADO Facility: [facility]:[place] : 1960 Planned Disposition: Anticipated Discharge Date: Discharge Date: Expected LOS: Initial Reviewer: [email or web address] Initial Review Date: 07/11/2018 Generated: 07/11/18 3:15 pm Patient Name: KARI CORONADO Page 96164 at 1416 All edits/amendments must be made on the electronic document DICTATION DATE: 07/11/18 1415 LINEMARKER: CECIL 07/11/18 1415 RPT#: [id number] DC DATE: STATUS: ADM IN [facility] [address] [place] [address] END OF REPORT
--- NOTE | ~2018-07-11 | HEMODYNAMI ---
PATIENT:KARI CORONADO MEDICAL RECORD: [id number] : 58 LOCATION:[place] [facility] ADMISSION DATE: 07/11/18 Generatedon:07/12/201816:06 Patient name: KARI CORONADO Patient #: [id number] SSN: : 1960 Date of study: 07/12/2018 Page: Of Hemodynamic Procedure Report Patient Data Patient Demographics Procedure consent was obtained First Name: KARI Gender: Male Last Name: IVONNE : 1960 Patient #: [id number] Age: 57 year(s) Race: Unknown Additional ID: [id number] Contact details Address: [address] [place] [address] State: [place] City: [place] Zip code: [address] Past Medical History Allergies: No known allergies Admission Admission Data Admission Date: 07/11/2018 Admission Time: 13:46 Room #: 2217 Procedure Procedure Types Cath Procedure Peripheral Cath Diagnostic Procedure Venography Procedure Description Procedure Date Procedure Date: 07/12/2018 Procedure Start Time: 15:35 Procedure Staff Name Function Clay Yanes MD Performing Physician Camila Mederos Scrub Dipika Hull RN Nurse Mitch Oliver RT Monitor Procedure Data Cath Procedure Fluoroscopy Diagnostic fluoroscopy Total fluoroscopy Time: 1.5 time: 1.5 min min Diagnostic fluoroscopy Total fluoroscopy dose: dose: 1503 mGy 1503 mGy Contrast Material Contrast Material Type Amount (ml) Isovue 300 115 Entry Location Entry Primary Successful Side Size Upsize Upsize Entry Closure Dimas ccessful Closure Location (Fr) 1 (Fr) 2 (Fr) Remarks Device Remarks Popliteal Right 8 Fr Manual Compression Procedure Medications Medication Administration Route Dosage Heparin Flush Bag added to field 3 bags (1000units/500ml NS) Lidocaine 1% added to field 20 Versed I.V. 2 mg Fentanyl I.V. 100 mcg Benadryl I.V. 50 mg Versed I.V. 1 mg Fentanyl I.V. 50 mcg Versed I.V. 1 mg Fentanyl I.V. 50 mcg Hemodynamics Rest Heart Rate: 195 (bpm) Snapshots Pre Cath Intra NCS Post Cath Vital Signs Time Heart Resp SPO2 etCO2 NIBP (mmHg) Rhythm Pain Sedation Rate (ipm) (%) (mmHg) Status Level (bpm) 14:55:55 0 16 34.2 181/64(94) NSR 0 (11) 10(A) , No pain 15:00:28 8 14.1 171/106(117) NSR 0 (11) 10(A) , No pain 15:04:52 15 38.6 168/114(138) NSR 0 (11) 10(A) , No pain 15:09:16 29 154/110(130) NSR 0 (11) 10(A) , No pain 15:13:36 44 17 98 14.1 165/103(142) NSR 0 (11) 10(A) , No pain 15:18:03 51 19 99 29.7 161/101(138) NSR 0 (11) 10(A) , No pain 15:22:27 30 13 98 23.7 167/103(145) NSR 0 (11) 10(A) , No pain 15:26:55 52 20 97 22.3 156/103(128) NSR 0 (11) 9(A) , No pain 15:31:15 59 14 98 28.9 162/96(132) NSR 0 (11) 9(A) , No pain 15:36:15 90 17 97 43.1 Measuring NSR 0 (11) 9(A) , No pain 15:37:36 54 15 93 37.2 Time NSR 0 (11) 8(A) Exceeded , No pain 15:40:08 26 13 96 43.1 142/94(115) NSR 0 (11) 8(A) , No pain 15:44:28 62 12 94 35.7 149/103(129) NSR 0 (11) 8(A) , No pain 15:48:58 122 12 95 44.6 143/93(114) NSR 0 (11) 8(A) , No pain 15:53:14 12 20.1 141/94(123) NSR 0 (11) 8(A) , No pain 15:57:35 92 11 27.5 139/92(117) NSR 0 (11) 8(A) , No pain 16:01:55 89 16 37.9 138/83(114) NSR 0 (11) 8(A) , No pain Medications Time Medication Route Dose Verified Delivered Reason Notes Effe ctiveness by by 15:26:06 Heparin Flush added 3 Clay Williamson used for Bag to bags Joaquín Yanes MD procedure (1000units/500ml field GARCIA NS) 15:26:21 Lidocaine 1% added 20ml Clay Williamson for local to vial Joaquín Yanes MD anesthetic field GARCIA 15:37:05 Versed I.V. 2 mg Clay Bar for Kurtis Yanes RN sedation 15:38:35 Fentanyl I.V. 100 Clay Dipika for mcg Kurtis Yanes RN sedation 15:43:08 Benadryl I.V. 50 mg Clay Dipika for Kurtis Yanes RN sedation 15:45:08 Versed I.V. 1 mg Clay Dipika for Kurtis Yanes RN sedation 15:45:19 Fentanyl I.V. 50 Clay Dipika for mcg Kurtis Yanes RN sedation 15:48:39 Versed I.V. 1 mg Clay Dipika for Kurtis Yanes RN sedation 15:48:47 Fentanyl I.V. 50 Clay Dipika for mcg Kurtis Yanes RN sedation Procedure Log Time Note 14:34:21 Camila Mederos sent for patient. Start room use. 14:34:28 Time tracking: Regular hours (M-F 7:00 - 5:00) 14:34:37 Plan of Care:Hemodynamics will remain stable., Cardiac rhythm will remain stable., Comfort level will be maintained., Respiratory function will remain adequate., Patient/ family verbilizes understanding of procedure., Procedure tolerated without complication., Recovers from procedure without complications.. 14:34:44 Patient received from Med/Surg to IR Unconscious. Tansferred to table i n Supine position. 14:34:46 Correct patient and procedure confirmed by team. 14:34:47 Signed procedure consent form obtained from patient. 14:34:48 ECG and BP/O2 sat monitors applied to patient. 14:34:49 - 14:34:50 Full Disclosure recording started 14:34:54 H&P Date Dictated: 07/12/2018 Within 30 days and on chart.. 14:34:54 Pre-procedure instructions explained to patient. 14:34:55 Pre-op teaching completed and patient verbalized understanding. 14:34:56 Family in waiting room. 14:34:59 Patient NPO since Midnight. 14:35:08 Patient allergic to No known allergies 14:35:12 Is the patient allergic to Iodine/contrast media? No. 14:35:14 Is patient on blood thinner?Yes 14:35:20 ACC The patient was administered the following blood thiners within the last 24 hours: Bk 14:35:32 Patient diabetic? No. 14:35:33 - 14:35:34 ----Pre-sedation anethsthesia assessment.---- 14:35:37 Previous problem with sedation/anesthesia? No ? 14:35:41 Snore? No 14:35:42 Sleep apnea? No 14:35:46 Deviated septum? No 14:35:48 Opens mouth fully? Yes 14:35:50 Sticks out tongue? Yes 14:35:52 Airway obstruction? No ? 14:35:58 Dentures? No ? 14:38:30 Patient pain scale 0/10 no pain. 14:54:27 Baseline sample Acquired. 14:54:27 Vital chart was started 14:55:17 Use device set IR Diagnostic 14:55:18 Tegaderm 4 x 4 ([id number]) opened to sterile field. 14:55:19 Sterile Angiographic Pack opened to sterile field. 14:55:19 Bag Decanter () opened to sterile field. 15:11:15 Baseline sample Acquired. 15:24:01 IV patent on arrival in right hand with 0.9% NaCl at [facility]. 15:24:03 Sharps counted by scrub and verified by R.N. 15:24:03 Alarms reviewed by R. N. 15:24:21 Popliteal region area was prepped with chlora-prep and draped in steril e fashion 15:26:06 Heparin Flush Bag (1000units/500ml NS) 3 bags added to field was administered by Clay Yanes MD; used for procedure; 15:: Lidocaine 1% 20ml vial added to field was administered by Clay Yanes MD; for local anesthetic; 15:34:11 Physician arrived 15::12 --------ALL STOP TIME OUT------ 15:34:12 Final Timeout: patient, procedure, and site verified with staff and physician. All members of the team are in agreement. 15:34:19 Popliteal region site verified by team. 15:34:24 Sedation plan: IV Moderate Sedation Medication:Versed, Fentanyl 15:35:04 Procedure started. 15:35:22 Local anesthetic to right popliteal vein with Lidocaine 1% by Clay Yanes MD.INITIAL ACCESS ONLY 15:35:28 Access obtained with 4Fr micropunture. 15:35:45 A 8 Fr sheath was inserted into the Right Popliteal 15:37:05 Versed 2 mg I.V. was administered by Dipika Hull RN; for sedation; 15:37:20 GLIDE WIRE ANGLE 180cm ([id number]) opened to sterile field. 15:37:21 GLIDE CATHETER 5FR ANGLED 65cm (CG507) opened to sterile field. 15:37:21 DOC .035 wire (W71722) opened to sterile field. 15:37:[address] Ori (833955) opened to sterile field. 15:37:28 Micropuncture VSI 4FR kit opened to sterile field. 15:38:35 Fentanyl 100 mcg I.V. was administered by Dipika Hull RN; for sedation; 15:43:08 Benadryl 50 mg I.V. was administered by Dipika Hull RN; for sedation; 15:45:08 Versed 1 mg I.V. was administered by Dipika Hull RN; for sedation; 15:45:19 Fentanyl 50 mcg I.V. was administered by Dipika Hull RN; for sedation ; 15:48:39 Versed 1 mg I.V. was administered by Dipika Hull RN; for sedation; 15:48:47 Fentanyl 50 mcg I.V. was administered by Dipika Hull RN; for sedation ; 15:54:23 Sheath removed intact; hemostasis achieved with Manual Compression to the Right Popliteal. 15:54:26 Procedure ended.(Physican Out) 15:54:50 Fluoroscopy time 01.50 minutes. 15:54:55 Fluoroscopy dose: 1503 mGy 15:54:55 Flurop Dose total: 1503 15:55:05 Insertion/operative site no bleeding no hematoma. 15:55:13 Post-op/insertion site Right Popliteal dressed using a 4 x 4 and Tegaderm. 15:55:19 Post right femoral vein:stable 15:55:22 Post Procedure Pulses reassessed and unchanged 15:56:22 Procedure and supply charges have been captured, reviewed, submitted an d are correct. 15:56:23 Post procedure instruction explained to patient.Patient verbalizes understanding. 16:05:35 Contrast amount:Isovue 300 115ml. 16:05:41 Report given to Med/Surg. 16:05:45 Patient transfered to Med/Surg with Bed. 16:06:05 Vital chart was stopped Device Usage Item Name Manufacture Quantity Catalog Hospital Part Current Minima l Lot# / Number Charge Number Stock Stock Serial# Code Tegaderm 4 x 3M 1 [id number] [id number] 5 4 (1626W) Sterile Cardinal 1 [id number] 632694 988664 5 Angiographic Health Pack Bag Decanter Microtek 1 [id number] 71538 978262 5 () [employer] GLIDE WIRE Terumo 1 [id number] 989807 395670 640493 5 ANGLE 180cm (FT4248) GLIDE Terumo 1 CG507 266616 743393 5 CATHETER 5FR ANGLED 65cm (CG507) DOC .035 wire [employer] 1 [id number] 852368 109759 5 (G53271) SHEATH 8FR St St Ori 1 118472 336256 550807 299637 5 Ori (124330) Micropuncture VSI VASCULAR 1 [id number] 946199 992549 5 VSI 4FR kit SOLUTIONS Signature Audit [place] Stage Time Signature Unsigned Intra-Procedure 07/12/2018 Mitch 4:06:02 PM Melody RT (R) (CV) Signatures Monitor : Mitch Signature : Melody RT Date : Time : [place] [id number] [place] [place] [address]
[~2018-07-11 10:03] MED LIST changes: +CARDURA2 MG PO; +COZAAR50 MG PO; +ELIQUIS5 MG PO; +MIRALAX17 GM PO; +NORCO 10-325 TA1 TAB PO; +XARELTO15 MG PO; +XARELTO20 MG PO
[2018-07-11 11:04] LABS: ALBUMIN 3.1 g/dL (3.4-5.0); ALKALINE PHOSPHATASE 80 U/L (46-116); ALT (SGPT) 45 U/L (10-68); BILIRUBIN - TOTAL 0.42 mg/dL (0.2-1.3); CALC OSMOLALITY 279 mosm/kg (275-300); CALCIUM 8.8 mg/dL (8.5-10.1); CARBON DIOXIDE 28.1 mmol/L (21.0-32.0); CHLORIDE - SERUM 97 mmol/L (98-107); CREATININE - SERUM 0.9 mg/dL (0.6-1.3); POTASSIUM - SERUM 3.7 mmol/L (3.5-5.1); PROTEIN - SERUM 7.2 g/dL (6.4-8.2); SODIUM 135 mmol/L (136-145); UREA NITROGEN 11 mg/dL (7-18); eGFR NON AFRICAN AMERICAN > 90 mL/min (90-120)
[2018-07-11 11:05] LABS: GLUCOSE 292 mg/dL (74-106)
[2018-07-11 12:33] LABS: INR 0.99 (0.85-1.17); PROTIME 12.6 SECONDS (11.6-15.0)
[2018-07-11 16:07] VITALS: BP 177/98; BMI 30.7
[2018-07-11 20:00] VITALS: BP 155/99
[2018-07-12] VITALS: BP 169/103
[2018-07-12 04:00] VITALS: BP 190/110
[2018-07-12 04:32] LABS: BASOPHILS 0.7 % (0-2); EOSINOPHILS 3.8 % (0-7); IMMATURE GRANULOCYTES 0.5 % (0-5); LYMPHOCYTES 29.3 % (15-50); MCH 30.9 pg (26.0-34.0); MCHC 33.6 g/dL (31.0-37.0); MCV 91.8 fL (80.0-100.0); MONOCYTES 7.5 % (2-11); NEUTROPHILS 58.2 % (40-80); RDW 12.5 % (11.5-14.5)
[2018-07-12 04:40] LABS: HEMATOCRIT 34.5 % (42.0-54.0); HEMOGLOBIN 11.6 g/dL (13.5-17.5); PLATELET COUNT 153 10x3/uL (130-400); RBC 3.76 10x6/uL (4.20-6.10); WBC 4.3 10x3/uL (4.8-10.8)
[2018-07-12 04:41] LABS: CALC OSMOLALITY 278 mosm/kg (275-300); CARBON DIOXIDE 28.9 mmol/L (21.0-32.0); CHLORIDE - SERUM 98 mmol/L (98-107); CREATININE - SERUM 0.8 mg/dL (0.6-1.3); GLUCOSE 279 mg/dL (74-106); POTASSIUM - SERUM 3.8 mmol/L (3.5-5.1); SODIUM 135 mmol/L (136-145); UREA NITROGEN 11 mg/dL (7-18); eGFR NON AFRICAN AMERICAN > 90 mL/min (90-120)
[2018-07-12 08:00] VITALS: BP 189/114
[2018-07-12 10:29] LABS: HEMATOCRIT 38.9 % (42.0-54.0); HEMOGLOBIN 12.3 g/dL (13.5-17.5); MCH 31.1 pg (26.0-34.0); MCHC 31.6 g/dL (31.0-37.0); MCV 98.5 fL (80.0-100.0); RBC 3.95 10x6/uL (4.20-6.10); WBC 3.5 10x3/uL (4.8-10.8)
[2018-07-12 10:30] LABS: BASOPHILS 0.6 % (0-2); EOSINOPHILS 2.9 % (0-7); LYMPHOCYTES 30.7 % (15-50); MEAN PLATELET VOLUME 10.9 fL (7.4-10.4); MONOCYTES 7.2 % (2-11); PLATELET COUNT 161 10x3/uL (130-400); RDW 13.7 % (11.5-14.5)
[2018-07-12 10:31] LABS: IMMATURE GRANULOCYTES 0.6 % (0-5)
[2018-07-12 10:52] VITALS: Ht 180.3 cm; Wt 99.8 kg
[2018-07-12 12:54] VITALS: BP 168/107
[2018-07-12 20:41] VITALS: BP 139/87
[2018-07-13 01:03] VITALS: BP 119/77
[2018-07-13 04:39] VITALS: BP 182/104
[2018-07-13 06:17] LABS: BASOPHILS 0.5 % (0-2); EOSINOPHILS 3.7 % (0-7); HEMATOCRIT 36.3 % (42.0-54.0); HEMOGLOBIN 12.5 g/dL (13.5-17.5); IMMATURE GRANULOCYTES 0.2 % (0-5); MCH 31.3 pg (26.0-34.0); MCHC 34.4 g/dL (31.0-37.0); MONOCYTES 7.6 % (2-11); PLATELET COUNT 184 10x3/uL (130-400); RBC 3.99 10x6/uL (4.20-6.10); RDW 12.6 % (11.5-14.5); WBC 4.1 10x3/uL (4.8-10.8)
[2018-07-13 06:18] LABS: CALC OSMOLALITY 278 mosm/kg (275-300); CALCIUM 8.7 mg/dL (8.5-10.1); CARBON DIOXIDE 25.6 mmol/L (21.0-32.0); CHLORIDE - SERUM 99 mmol/L (98-107); CREATININE - SERUM 0.8 mg/dL (0.6-1.3); GLUCOSE 270 mg/dL (74-106); SODIUM 135 mmol/L (136-145); UREA NITROGEN 10 mg/dL (7-18); eGFR NON AFRICAN AMERICAN > 90 mL/min (90-120)
[2018-07-13 08:22] VITALS: BP 144/102
[2018-07-13] MEDS ORDERED: HYDROCODON-ACE1 EAC7 PO (10:50)
[2018-07-13] MEDS ORDERED: ELIQUIS5 MG PO (10:53)
[2018-07-13 12:20] VITALS: BP 165/103
== END 2018-07-13 14:42 | disposition home or self-care (01) | DRG 300 ==
LOC: D.ER 10:03 → D.MS 13:46 → D.EDHOLD 13:46 → D.MS 15:23
PROVIDERS: Family Medicine; General Practice; Internal Medicine Nephrology
PROC: B51B1ZZ Fluoroscopy of Right Lower Extremity Veins using Low Osmolar Contrast (ICD-10-PCS; principal; 2018-07-12 15:00)
DX: I82.401 Acute embolism and thrombosis of unspecified deep veins of right lower extremity (principal); B19.10 Unspecified viral hepatitis B without hepatic coma; E11.51 Type 2 diabetes mellitus with diabetic peripheral angiopathy without gangrene; I10 Essential (primary) hypertension; D69.6 Thrombocytopenia, unspecified; D75.1 Secondary polycythemia; B19.20 Unspecified viral hepatitis C without hepatic coma; D64.9 Anemia, unspecified

== ENCOUNTER → 2018-10-30 17:38 | Outpatient (CLI) | payer OTHER ==
[2018-07-12 10:52] VITALS: BMI 30.6
[~2018-10-30 17:38] MED LIST changes: +HYDROCODON-ACE1 EAC7 PO
== END | disposition home or self-care (01) ==
LOC: D.LABREF 17:38
PROVIDERS: ATTEND Internal Medicine Hematology & Oncology
DX: Z31.440 Encounter of male for testing for genetic disease carrier status for procreative management (principal)